=== PATIENT | male | born 1980 | race Caucasian/White ===

== ENCOUNTER → 2021-12-11 | Day surgery (SDC) | payer MEDICARE ==
[~2021-12-11] VITALS: Ht 188 cm; Wt 88.5 kg
[~2021-12-11] MED LIST: ACETAMINOPHEN500 M1 PO; BENTYL10 MG PO; BUSPIRONE HCL15 MG PO; CERTAGEN1 EACH PO; COLACE100 MG PO; DIAZEPAM5 MG PO; FENUGREEK500 MG PO; INDERAL20 MG PO; MIRALAX 238GM238 GM PO; MOTRIN600 MG PO; MYLICON80 MG PO; NORCO 5-325 TA1 EACH PO; OXY-IR 5MG5 MG PO; PERCOCET 5-3251 EACH PO; PROBIOTIC1 EAC1 PO; TRAMADOL HCL50 MG PO
== END | disposition home or self-care (01) ==
LOC: FAS 09:54
DX: K40.30 Unilateral inguinal hernia, with obstruction, without gangrene, not specified as recurrent (principal); F32.A Depression, unspecified; E78.5 Hyperlipidemia, unspecified; I10 Essential (primary) hypertension; Z87.891 Personal history of nicotine dependence; Z20.822 Contact with and (suspected) exposure to COVID-19
CPT/HCPCS: J0690; J1100; J1170; J1644; J1885; J2250; J2405; J2704; J3010; J7120; U0002